=== PATIENT | male | born 1985 | race Caucasian/White ===

== ENCOUNTER 2021-08-09 21:09 | Emergency (ER) | payer OTHER ==
[2021-08-09 22:39] LABS: BASOPHIL 1.1 % (0-2); EOSINOPHIL 4.3 % (0-5); HCT 40.2 % (42.0-52.0); HGB 12.7 g/dl (13.2-18.0); LYMPHOCYTE 29.1 % (15-48); MCH 19.8 pg (25.0-31.0); MCHC 31.6 g/dL (32.0-36.0); MCV 62.7 fL (78.0-100.0); MONOCYTE 6.2 % (0-12); MPV 10.6 fL (6.0-9.5); NRBC 0.2; PLT 367 K/uL (150-400); RBC 6.41 M/uL (4.70-6.00); RDW 17.2 % (11.5-14.0); WBC 9.6 K/uL (4.0-10.5)
[2021-08-09 23:04] LABS: BUN 9 mg/dL (7-18); BUN/CREAT RATIO (CALC) 10.1 RATIO; C-REACTIVE PROTEIN < 0.20 mg/dL (<=0.90); CHLORIDE 102 mmol/L (98-107); CO2 (BICARBONATE) 29 mmol/L (21-32); CREATININE 0.89 mg/dL (0.67-1.17); GLUCOSE 119 mg/dL (74-106); POTASSIUM 4.1 mmol/L (3.5-5.1)
[2021-08-10] MEDS ORDERED: IMITREX100 MG PO (00:55)
== END 2021-08-10 01:04 | disposition home or self-care (01) ==
LOC: FER 21:09
PROVIDERS: Emergency Medicine Emergency Medical Services
DX: R51.9 Headache, unspecified (principal)
CPT/HCPCS: 36415; 70450; 70486; 80048; 85025; 86140; 96372; J1100; J1200; J1885; J2765; J3030; J7030